=== PATIENT | female | born 1990 | race Hispanic/Latino ===

== ENCOUNTER 2017-12-02 21:56 | Emergency (ER) | payer BC ==
[2017-12-02 22:33] VITALS: BP 134/87; PULSE 106; RESP 18; TEMP 99.2; O2SAT 99
[2017-12-02] MEDS ORDERED: Amoxicillin-Clav 875-125 mg Tab PO STA (23:45)
--- NOTE | 2017-12-02 23:45 | ED PDOC ---
HPI: CCC, URI, Sore Throat Time Seen by Provider: 12/02/17 23:38 Chief Complaint (Nursing): ENT Problem Chief Complaint (Provider): Sore throat History Per: Patient Additional Complaint(s): 27 yo female, no PMH, presents to ED with complaints of sore throat, sinus pressure, dry cough, raspy voice, tactile fever and chills Since Tuesday. Pt taking DayQuil and NyQuil with little relief. Past Medical History Reviewed: Nursing Documentation, Vital Signs Vital Signs: Last Vital Signs Temp 99.2 F 12/02/17 22:30 Pulse 106 H 12/02/17 22:30 Resp 18 12/02/17 22:30 BP 134/87 12/02/17 22:30 Pulse Ox 99 12/02/17 22:30 - Medical History PMH: No Chronic Diseases - Surgical History Surgical History: No Surg Hx - Family History Family History: States: Unknown Family Hx - Living Arrangements Living Arrangements: With Family - Social History Current smoker - smoking cessation education provided: No Alcohol: Social Drugs: Denies - Home Medications Home Medications: Ambulatory Orders Medication Instructions Recorded Albuterol HFA [Ventolin HFA 90 2 puff IH [id number] PRN #0 puff 03/24/16 mcg/actuation (8 g)] Azithromycin [Zithromax] 1 tab PO DAILY #6 tablet 03/24/16 Promethazine DM [Phenergan DM 5 ml PO Q12 PRN #120 ml 03/24/16 Syrup] Amoxicillin/Clavulanate [Augmentin 1 tab PO BID #14 tab 12/02/17 875 MG-125 MG] Ibuprofen [Motrin] 600 mg PO Q6 #20 tab 12/02/17 Methylprednisolone [Medrol Dose 4 mg PO DAILY #21 mg 12/02/17 Pack (21 tabs)] - Allergies Allergies/Adverse Reactions: Allergies Allergy/AdvReac Type Severity Reaction Status Date / Time No Known Allergies Allergy Verified 03/24/16 22:33 Review of Systems ROS Statement: Except As Marked, All Systems Reviewed And Found Negative Constitutional: Positive for: Fever ENT: Positive for: Nose Congestion, Throat Pain Respiratory: Positive for: Cough Physical Exam - Reviewed Nursing Documentation Reviewed: Yes Vital Signs Reviewed: Yes - Physical Exam Appears: Positive for: Well, Non-toxic, No Acute Distress Head Exam: Positive for: ATRAUMATIC, NORMAL INSPECTION, NORMOCEPHALIC Skin: Positive for: Normal Color, Warm, DRY Eye Exam: Positive for: EOMI, Normal appearance, PERRL ENT: Positive for: TM Is/Are (WNL), Sinus Pain/Drainage (Maxillary sinus tenderness). Negative for: Pharyngeal Erythema, Tonsillar Exudate, Tonsillar Swelling Neck: Positive for: Normal, Painless ROM Cardiovascular/Chest: Positive for: Regular Rate, Rhythm Respiratory: Positive for: CNT, Normal Breath Sounds Gastrointestinal/Abdominal: Positive for: Normal Exam, Bowel Sounds, Soft Back: Positive for: Normal Inspection Extremity: Positive for: Normal ROM Neurologic/Psych: Positive for: Alert, Oriented - ECG O2 Sat by Pulse Oximetry: 99 Medical Decision Making Medical Decision Making: Pt medicated with Augmentin, Motrin and Prednisone while in ED Given RX to continue medications at home. Supportive care measures discussed as well. Patient instructed to follow-up with pmd in 1-2 days without fail. Advised to take medication as prescribed. Return to the emergency room at any time for any new or worsening symptoms. Patient states he/she fully agrees with and understands discharge instructions. States that he/she agrees with the plan and disposition. Verbalized and repeated discharge instructions and plan. I have given the patient opportunity to ask any additional questions. Temp on dc: 98.9 F P: 88 Disposition - Clinical Impression Clinical Impression: Sinusitis, Ear, nose, and throat symptom - Patient ED Disposition Is Patient to be Admitted: No - Disposition Disposition: Routine/Home Disposition Time: 23:56 Condition: STABLE
== END 2017-12-03 00:15 | disposition home or self-care (01) ==
LOC: H.ER 21:56
DX: J32.9 Chronic sinusitis, unspecified (principal); R68.89 Other general symptoms and signs